=== PATIENT | female | born 1955 | race Caucasian/White ===

== ENCOUNTER → 2016-07-19 | Outpatient (CLI) | payer OTHER | LOC: CCC 08:05 | DX: E11.9 Type 2 diabetes mellitus without complications (principal) | CPT/HCPCS: 36415; 83036 ==

== ENCOUNTER → 2016-10-10 | Outpatient (CLI) | payer OTHER | LOC: CCC 12:45 | DX: E11.9 Type 2 diabetes mellitus without complications (principal) | CPT/HCPCS: 36415; 83036 ==

== ENCOUNTER → 2016-10-18 | Outpatient (CLI) | payer OTHER ==
--- NOTE | 2016-10-18 22:29 | EKG REPORT ---
SEVERITY:- NORMAL ECG - SINUS RHYTHM : Confirmed by: Rhonda Cowart MD 18-Oct-2016 22:28:24
== END ==
LOC: OD 11:56
DX: R07.89 Other chest pain (principal); I10 Essential (primary) hypertension
CPT/HCPCS: 93005; 93010

== ENCOUNTER → 2016-11-28 | Outpatient (CLI) | payer OTHER ==
[2016-11-28 10:34] LABS: ABSOLUTE EOSINOPHILS # (AUTO) 0.1 10^3/uL (0.0-0.6); ABSOLUTE LYMPHOCYTES (AUTO) 1.9 10^3/uL (0.5-4.7); ABSOLUTE MONOCYTES (AUTO) 0.5 10^3/uL (0.1-1.4); ABSOLUTE NEUT (AUTO) 4.9 10^3/uL (1.7-8.2); BASOPHILS % (AUTO) 0.6 % (0-2); EOSINOPHILS % (AUTO) 1.9 % (0-6); HEMATOCRIT 37.3 % (36.0-47.0); HEMOGLOBIN 12.2 g/dL (12.0-15.5); HGB HCT DIFFERENCE -0.7; LYMPHOCYTES % (AUTO) 25.7 % (13-45); MEAN CORPUSCULAR HEMOGLOBIN 27.5 pg (27.0-33.4); MEAN CORPUSCULAR HGB CONC 32.6 g/dL (32.0-36.0); MEAN CORPUSCULAR VOLUME 84 fl (80-97); MONOCYTES % (AUTO) 6.8 % (3-13); RED BLOOD COUNT 4.42 10^6/uL (3.72-5.28); RED CELL DISTRIBUTION WIDTH 14.6 % (11.5-14.0); WHITE BLOOD COUNT 7.5 10^3/uL (4.0-10.5)
[2016-11-28 11:02] LABS: ALANINE AMINOTRANSFERASE 34 U/L (9-52); ALBUMIN 4.3 g/dL (3.5-5.0); ALKALINE PHOSPHATASE 129 U/L (38-126); ANION GAP 13 (5-19); ASPARTATE AMINO TRANSFERASE 23 U/L (14-36); BILIRUBIN,DIRECT 0.4 mg/dL (0.0-0.4); BILIRUBIN,TOTAL 0.6 mg/dL (0.2-1.3); BLOOD UREA NITROGEN 26 mg/dL (7-20); CALCIUM 10.4 mg/dL (8.4-10.2); CARBON DIOXIDE 30 mmol/L (22-30); CHLORIDE 100 mmol/L (98-107); CHOLESTEROL 188.47 mg/dL (0-200); Direct HDL 45 mg/dL (>40); GLUCOSE 86 mg/dL (75-110); SODIUM 143.4 mmol/L (137-145); TOTAL PROTEIN 7.6 g/dL (6.3-8.2); TRIGLYCERIDES 188 mg/dL (<150)
[2016-11-28 11:13] LABS: DIRECT LDL 93 mg/dL (<100)
[2016-11-28 11:19] LABS: VLDL CHOLESTEROL 37.6 mg/dL (10-31)
== END ==
LOC: CCC 09:49
DX: E11.9 Type 2 diabetes mellitus without complications (principal); I10 Essential (primary) hypertension
CPT/HCPCS: 36415; 80053; 80061; 83036; 84443; 85025

== ENCOUNTER → 2017-02-18 | Outpatient (CLI) | payer OTHER ==
--- NOTE | 2017-02-18 17:45 | WOMENS IMAGING REPORT ---
EXAM DESCRIPTION: BILAT SCREENING MAMMO W/CAD COMPLETED DATE/TIME: 02/18/2017 8:51 am REASON FOR STUDY: ROUTINE SCREENING; Z12.31 Z12.31 ENCNTR SCREEN MAMMOGRAM FOR MALIGNANT NEOPLASM O F PETE COMPARISON: 06/27/2015 TECHNIQUE: Standard craniocaudal and mediolateral oblique views of each breast recorded using Yotomoa l acquisition. LIMITATIONS: None. FINDINGS: Findings present which are benign by mammographic criteria. No suspicious masses, calcifi cations or architectural distortion. Pertinent benign findings: Stable benign bilateral breast parenchymal calcifications. Stable benign mammographic nodules in the left upper outer quadrant. Read with the assistance of CAD. .[facility] - R2 Cenova Version 1.3 .[facility] - R2 Cenova Version 1.3 .[facility] - R2 Cenova Version 2.4 .[facility] [place] - R2 Cenova Version 2.4 .[facility] - R2 Tape Stringer Version 9.2 Benign mammographic findings may include one or more of the following: Smooth masses, popcorn/rim/co arse calcifications, asymmetries, post-procedure changes, and lesions with long-standing stability. IMPRESSION: BENIGN MAMMOGRAPHIC FINDINGS. BIRADS 2 BREAST DENSITY: c. The breasts are heterogeneously dense, which may obscure small masses. BIRAD: 2 BENIGN FINDING(S) RECOMMENDATION: ROUTINE SCREENING Please consider bilateral screening tomosynthesis in February 2018 COMMENT: The patient has been notified of the results by letter per SA requirements. Additional no tification policies are in place for contacting patient with suspicious or incomplete findings. Quality ID #[id number]: The [employer] recommends an annual screening mammogram for women aged 40 years or over. This facility utilizes a reminder system to ensure that all patients receive reminder letters, and/or direct phone calls for appointments. This includes reminders for routine scr eening mammograms, diagnostic mammograms, or other Breast Imaging Interventions when appropriate. Th is patient will be placed in the appropriate reminder system. The [employer] (ACR) has developed recommendations for screening MRI of the breast s in certain patient populations, to be used in conjunction with mammography. Breast MRI surveillanc e may be appropriate for women with more than 20% lifetime risk of developing breast cancer as deter mined by genetic testing, significant family history of the disease, or history of mantle radiation f or Hodgkins Disease. ACR Practice Guidelines 2008. TECHNICAL DOCUMENTATION: FINDING NUMBER: (1) ASSESSMENT: (1) JOB ID: [id number] [employer] [facility] [employer]- All Rights Reserved
== END ==
LOC: WI 08:28
DX: Z12.31 Encounter for screening mammogram for malignant neoplasm of breast (principal)
CPT/HCPCS: 77067; G0202

== ENCOUNTER → 2017-04-25 | Outpatient (CLI) | payer OTHER ==
[2017-04-27 11:41] LABS: VITAMIN D 25-HYDROXY 16.2 ng/mL (30.0-100.0)
== END ==
LOC: CCC 08:42
DX: E11.40 Type 2 diabetes mellitus with diabetic neuropathy, unspecified (principal); I10 Essential (primary) hypertension
CPT/HCPCS: 36415; 82306; 83036; 83970

== ENCOUNTER → 2017-06-09 | Outpatient (CLI) | payer OTHER ==
--- NOTE | 2017-06-09 11:31 | WOMENS IMAGING REPORT ---
EXAM DESCRIPTION: RETROPERITONEAL U/S COMPLETED DATE/TIME: 06/09/2017 11:13 am REASON FOR STUDY: STAGE 3 BCKD; N18.3 N18.3 CHRONIC KIDNEY DISEASE, STAGE 3 (MODERATE) COMPARISON: None. TECHNIQUE: Dynamic and static grayscale images acquired of the kidneys and bladder and recorded on P ACS. Additional selected color Doppler and spectral images recorded. LIMITATIONS: None. FINDINGS: RIGHT KIDNEY: Normal size, 11.1 cm. There is cortical thinning. Normal echogenicity. No solid or suspicious masses. No hydronephrosis. No calcifications. LEFT KIDNEY: Normal size, 11.5 cm. There is cortical thinning. Normal echogenicity. No solid or suspicious masses. No hydronephrosis. No calcifications. BLADDER: Ureteral jets are seen bilaterally. No mass is present. OTHER FINDINGS: No other significant finding. IMPRESSION: There is mild cortical thinning each kidney. No other abnormality is appreciated. TECHNICAL DOCUMENTATION: JOB ID: [id number] [employer]- All Rights Reserved
== END ==
LOC: WI 10:38
DX: E11.22 Type 2 diabetes mellitus with diabetic chronic kidney disease (principal); N18.3 Chronic kidney disease, stage 3 (moderate)
CPT/HCPCS: 76770

== ENCOUNTER → 2017-07-11 | Outpatient (CLI) | payer OTHER ==
--- NOTE | 2017-07-11 09:11 | RADIOLOGY REPORT (SQ) ---
EXAM DESCRIPTION: MRI LT LOWER JOINT WITHOUT COMPLETED DATE/TIME: 07/11/2017 7:46 am REASON FOR STUDY: PAIN IN LEFT ANKLE AND JOINTS OF LEFT FOOT (M25.572) M25.572 PAIN IN LEFT ANKLE A ND JOINTS OF LEFT FOOT COMPARISON: 05/15/2017 TECHNIQUE: Left ankle images acquired and stored on PACS. Multiplanar images include fat sensitive s equences as T1, fluid sensitive sequences as FST2/STIR, cartilage sensitive sequences as FSPD, and gr adient echo sequences. LIMITATIONS: None. FINDINGS: BONE MARROW: Bone bruising of the medial malleolus along the articulation with the medial talus. EFFUSIONS: No subtalar or tibiotalar effusions. No loose bodies. OSSEOUS ARTICULATIONS: Normal tibiotalar, subtalar, talonavicular and calcaneocuboid joints. TALAR DOME AND TIBIAL PLAFOND: Normal cartilage. No osteochondral defect. ACHILLES TENDON: Marked thickening of the distal Achilles and at its insertion on the calcaneus. Lar ge Achilles spur. No discrete tear. TIBIALIS ANTERIOR TENDON: Intact without edema at the 1st MT attachment. TIBIALIS POSTERIOR TENDON: Normal morphology and no edema at the navicular attachment. No tendon hammer th fluid. FLEXOR HALLUCIS LONGUS AND FLEXOR DIGITORUM TENDONS: Normal morphology and no tendon sheath fluid. No edema of the os trigonum. PERONEUS LONGUS AND BREVIS TENDON: Normal morphology and no tendon sheath fluid. No subluxation. ATFL, CFL, PTFL: Intact. No thickening or signal alteration. No kashif-ligamentous fluid. DELTOID LIGAMENT: Visualized components intact. TARSAL TUNNEL: No masses. No muscle atrophy. SINUS TARSI: No fluid. No reactive marrow edema or erosions. PLANTAR FASCIA: Mild signal alteration at the calcaneal insertion. There is a plantar spur. No disc rete tear. ADJACENT SOFT TISSUES: No masses. OTHER: No other significant finding. IMPRESSION: Distal Achilles tendinopathy with large Achilles spur. No jose f tear. Marrow edema/ bone bruising of the medial malleolus along the articulation with the medial talus. Mild signal alteration at the calcaneal insertion of the plantar fascia. TECHNICAL DOCUMENTATION: JOB ID: [id number] [employer]- All Rights Reserved
== END ==
LOC: RAD 06:56
PROVIDERS: ATTEND Podiatrist Foot & Ankle Surgery
DX: M25.572 Pain in left ankle and joints of left foot (principal); M77.32 Calcaneal spur, left foot

== ENCOUNTER → 2017-09-04 | Outpatient (CLI) | payer OTHER ==
[2017-09-04 12:05] LABS: ABSOLUTE BASOPHILS # (AUTO) 0.1 10^3/uL (0.0-0.2); ABSOLUTE EOSINOPHILS # (AUTO) 0.2 10^3/uL (0.0-0.6); ABSOLUTE LYMPHOCYTES (AUTO) 2.2 10^3/uL (0.5-4.7); ABSOLUTE MONOCYTES (AUTO) 0.4 10^3/uL (0.1-1.4); BASOPHILS % (AUTO) 0.8 % (0-2); HEMATOCRIT 39.7 % (36.0-47.0); HEMOGLOBIN 13.3 g/dL (12.0-15.5); LYMPHOCYTES % (AUTO) 27.9 % (13-45); MEAN CORPUSCULAR HEMOGLOBIN 28.1 pg (27.0-33.4); MEAN CORPUSCULAR HGB CONC 33.4 g/dL (32.0-36.0); MEAN CORPUSCULAR VOLUME 84 fl (80-97); MONOCYTES % (AUTO) 5.5 % (3-13); PLATELET COUNT 303 10^3/uL (150-450); RED BLOOD COUNT 4.72 10^6/uL (3.72-5.28); RED CELL DISTRIBUTION WIDTH 14.3 % (11.5-14.0); SEGMENTED NEUTROPHILS % (AUTO) 63.8 % (42-78); TOTAL CELLS COUNTED % (AUTO) 100 %; WHITE BLOOD COUNT 7.8 10^3/uL (4.0-10.5)
[2017-09-04 12:31] LABS: ALANINE AMINOTRANSFERASE 23 U/L (9-52); ALBUMIN 4.2 g/dL (3.5-5.0); ALKALINE PHOSPHATASE 156 U/L (38-126); ANION GAP 10 (5-19); ASPARTATE AMINO TRANSFERASE 16 U/L (14-36); BILIRUBIN,DIRECT 0.1 mg/dL (0.0-0.4); BILIRUBIN,TOTAL 0.3 mg/dL (0.2-1.3); BLOOD UREA NITROGEN 28 mg/dL (7-20); CALCIUM 10.1 mg/dL (8.4-10.2); CARBON DIOXIDE 28 mmol/L (22-30); CHLORIDE 102 mmol/L (98-107); CHOLESTEROL 200.05 mg/dL (0-200); GLUCOSE 147 mg/dL (75-110); POTASSIUM 4.2 mmol/L (3.6-5.0); SODIUM 140.4 mmol/L (137-145); TOTAL PROTEIN 6.8 g/dL (6.3-8.2); TRIGLYCERIDES 169 mg/dL (<150)
[2017-09-04 12:42] LABS: DIRECT LDL 114 mg/dL (<100)
[2017-09-04 13:40] LABS: VLDL CHOLESTEROL 33.8 mg/dL (10-31)
== END ==
LOC: CCC 11:22
DX: I10 Essential (primary) hypertension (principal)
CPT/HCPCS: 36415; 80053; 80061; 82306; 82607; 82746; 83036; 84443; 85025

== ENCOUNTER 2017-11-21 21:59 | Emergency (ER) | payer OTHER ==
[2017-11-21 23:10] LABS: ABSOLUTE BASOPHILS # (AUTO) 0.1 10^3/uL (0.0-0.2); ABSOLUTE EOSINOPHILS # (AUTO) 0.1 10^3/uL (0.0-0.6); ABSOLUTE LYMPHOCYTES (AUTO) 2.5 10^3/uL (0.5-4.7); ABSOLUTE MONOCYTES (AUTO) 0.6 10^3/uL (0.1-1.4); ABSOLUTE NEUT (AUTO) 5.9 10^3/uL (1.7-8.2); BASOPHILS % (AUTO) 0.9 % (0-2); EOSINOPHILS % (AUTO) 1.2 % (0-6); HEMATOCRIT 38.7 % (36.0-47.0); HEMOGLOBIN 13.4 g/dL (12.0-15.5); LYMPHOCYTES % (AUTO) 27.2 % (13-45); MEAN CORPUSCULAR HEMOGLOBIN 29.1 pg (27.0-33.4); MEAN CORPUSCULAR HGB CONC 34.6 g/dL (32.0-36.0); MEAN CORPUSCULAR VOLUME 84 fl (80-97); MONOCYTES % (AUTO) 6.2 % (3-13); PLATELET COUNT 299 10^3/uL (150-450); RED CELL DISTRIBUTION WIDTH 13.9 % (11.5-14.0); SEGMENTED NEUTROPHILS % (AUTO) 64.5 % (42-78); TOTAL CELLS COUNTED % (AUTO) 100 %; WHITE BLOOD COUNT 9.2 10^3/uL (4.0-10.5)
[2017-11-21 23:24] LABS: ANION GAP 12 (5-19); BLOOD UREA NITROGEN 32 mg/dL (7-20); CALCIUM 9.8 mg/dL (8.4-10.2); CARBON DIOXIDE 28 mmol/L (22-30); CHLORIDE 98 mmol/L (98-107); GLUCOSE 248 mg/dL (75-110); SODIUM 138.4 mmol/L (137-145)
[2017-11-21] MEDS ORDERED: LIDOCAINE 5% (700 MG) TRANSDERMAL ADH..PATCH TP ONE (23:54)
[2017-11-21] MEDS ORDERED: IBUPROFEN 600 MG TABLET PO ONE (23:54)
--- NOTE | 2017-11-22 00:07 | RADIOLOGY REPORT (SQ) ---
EXAM DESCRIPTION: XR CHEST 1 VIEW CLINICAL HISTORY: 62 years Female, chest pain COMPARISON: None. NUMBER OF VIEWS/TECHNIQUE: 1/AP FINDINGS: Adequate lung volume, clear parenchyma, normal cardiac silhouette, and intact bony thorax. IMPRESSION: No acute cardiopulmonary findings.
--- NOTE | 2017-11-22 00:29 | ER Document Report ---
ED General - General Chief Complaint: Chest Pain Stated Complaint: CHEST PAIN Time Seen by Provider: 11/21/17 23:00 Notes: Patient is a 62-year-old female with a past medical history of hypertension, hyperlipidemia, no prior cardiac history who presents with intermittent chest pain for the past 1 week. Patient reports that she has several episodes daily of a sharp, catching pain to the left central area of her chest. She states that it is sometimes induced by moving her arm but notes that it can otherwise occur sometimes when she is just moving around. The symptoms do start spontaneously and resolve spontaneously. She states that she has a history of the same in the past but they have never identified an etiology of where the pain has come from. She denies any associated nausea, vomiting, diaphoresis or shortness of breath. She denies any history of DVT or pulmonary embolus. She has not seen her primary doctor regarding today's concerns. TRAVEL OUTSIDE OF THE [place] IN LAST 30 DAYS: No Past Medical History - General Information source: Patient - Social History Smoking Status: Former Smoker Chew tobacco use (# tins/day): No Frequency of alcohol use: None Drug Abuse: None Lives with: Family Family History: Reviewed & Not Pertinent Patient has suicidal ideation: No Patient has homicidal ideation: No Renal/ Medical History: Denies: Hx Peritoneal Dialysis Review of Systems - Review of Systems Notes: Constitutional: Negative for fever. HENT: Negative for sore throat. Eyes: Negative for visual changes. Cardiovascular: Positive for chest pain. Respiratory: Negative for shortness of breath. Gastrointestinal: Negative for abdominal pain, vomiting or diarrhea. Genitourinary: Negative for dysuria. Musculoskeletal: Negative for back pain. Skin: Negative for rash. Neurological: Negative for headaches, weakness or numbness. 10 point ROS negative except as marked above and in HPI. Physical Exam - Vital signs Vitals: Temp Pulse Resp BP Pulse Ox 97.6 F 79 18 186/79 H 97 11/21/17 22:23 11/21/17 22:23 11/21/17 22:23 11/21/17 22:23 11/21/17 22:23 Interpretation: Hypertensive Notes: PHYSICAL EXAMINATION: GENERAL: Well-appearing, well-nourished and in no acute distress. HEAD: Atraumatic, normocephalic. EYES: Pupils equal round and reactive to light, extraocular movements intact, sclera anicteric, conjunctiva are normal. ENT: nares patent, oropharynx clear without exudates. Moist mucous membranes. NECK: Normal range of motion, supple without lymphadenopathy LUNGS: Breath sounds clear to auscultation bilaterally and equal. No wheezes rales or rhonchi. HEART: Regular rate and rhythm without murmurs ABDOMEN: Soft, nontender, normoactive bowel sounds. No guarding, no rebound. No masses appreciated. EXTREMITIES: Normal range of motion, no pitting or edema. No cyanosis. NEUROLOGICAL: No focal neurological deficits. Moves all extremities spontaneously and on command. PSYCH: Normal mood, normal affect. SKIN: Warm, Dry, normal turgor, no rashes or lesions noted. Course - Re-evaluation Re-evalutation: 11/22/17 00:27 Presentation of chest pain in an otherwise well appearing patient. Low clinical suspicion for ACS given clinical history, exam, EKG without ST elevations or depressions, and negative initial troponin. HEART score less than or equal to 3. PE also seems unlikely given clinical history, absence of tachycardia or dyspnea. Patient is PERC criteria negative. CXR without evidence of pneumothorax or pneumonia. No widened mediastinum. Aortic dissection also seems unlikely given history, symmetric pulses, CXR, and vitals. Will repeat a delta troponin if this remains normal plan for discharge home 11/22/17 02:45 Delta troponin remains normal. Final assessment: Chest pain in a patient without evidence of cardiac or other serious etiology on workup today. I discussed with patient that, based on their age, risk factors and emergency department testing today, the likelihood that their symptoms are related to a heart attack is very low (estimated risk of heart attack or over the next 30 days of less than 1%). The patient demonstrates decision making capacity and has verbalized an understanding of these risks to me. Based on this, the patient has chosen to follow-up as an outpatient. Usual chest pain return precautions reviewed. The patient states understanding and agreement with this plan. - Vital Signs Vital signs: Temp Pulse Resp BP Pulse Ox 97.6 F 79 19 137/69 H 95 11/21/17 22:23 11/21/17 22:23 11/22/17 02:31 11/22/17 02:31 11/22/17 02:31 - Laboratory Result Diagrams: 11/21/17 23:00 11/21/17 23:00 Laboratory results interpreted by me: 11/21/17 23:00 BUN 32 H Creatinine 1.57 H Est GFR ( Amer) 41 L Est GFR (Non-Af Amer) 34 L Glucose 248 H - Diagnostic Test Radiology reviewed: Image reviewed, Reports reviewed Radiology results interpreted by me: 11/22/17 00:28 Chest x-ray: No acute infiltrate or pneumothorax - EKG Interpretation by Me Additional EKG results interpreted by me: 11/22/17 00:29 Sinus rhythm. Rate 75. No ST elevations or depressions. QTC is 407. Discharge - Discharge Clinical Impression: Essential hypertension Chest pain Qualifiers: Chest pain type: unspecified Qualified Code(s): R07.9 - Chest pain, unspecified Condition: Good Disposition: HOME, SELF-CARE Additional Instructions: You were seen today for chest pain. The exact cause of your pain is unclear. However, based on your cardiac enzyme testing, chest x-ray, and EKG it does not appear that it is from an immediately life-threatening cause at this time. Although your testing here is normal is critical that you follow-up with your primary care physician for continued evaluation of this chest pain and possible stress testing. I recommended you see your physician within the next 24-48 hours to be evaluated for consideration of a stress test. Please return to emergency department immediately if you have worsening of your chest pain, shortness of breath, vomiting, become unable to exert yourself due to pain or difficulty breathing, you pass out, or have any pain that radiates into your arms, jaw, or back. Please also return if you have any additional symptoms that are concerning to you. Referrals: [facility] [Primary Care Provider] - Follow up as needed
[2017-11-22 03:03] VITALS: BP 137/69
--- NOTE | 2017-11-22 08:51 | EKG REPORT ---
SEVERITY:- NORMAL ECG - SINUS RHYTHM : Confirmed by: Min Lin MD 22-Nov-2017 08:51:01
== END 2017-11-22 03:04 | disposition home or self-care (01) ==
LOC: ER 21:59
DX: R07.9 Chest pain, unspecified (principal); I10 Essential (primary) hypertension; Z87.891 Personal history of nicotine dependence
CPT/HCPCS: 36415; 71045; 80048; 84484; 85025; 93005; 93010; 99285

== ENCOUNTER → 2017-12-29 | Outpatient (CLI) | payer OTHER ==
--- NOTE | 2017-12-29 18:34 | XCELERA REPORT ---
[address] [address] Transthoracic Echocardiogram Report Name: SOPHIE PATEL Age: 62 yrs Gender: Female : 1955 Patient Status: Outpatient Patient Location: Study Date: 12/29/2017 03:06 PM Height: 62 in Weight: 195 lb BSA: 1.9 m2 Procedure: A complete two-dimensional transthoracic echocardiogram was performed (2D, M-mode, spectral and color flow Doppler). The study was technically adequate with some images being suboptimal in quality. Reason For Study: CP Ordering Physician: RADHA HOLMAN Performed By: Pilar Hendricks Interpretation Summary The left ventricular ejection fraction is normal. There is borderline concentric left ventricular hypertrophy. The left ventricle is grossly normal size. Doppler measurements suggest pseudonormalized left ventricular relaxation, which is associated with grade II/IV or mild to moderate diastolic dysfunction Wall motion cannot be accurately commented on, but no definite regional wall motion abnormalities noted. The right ventricular systolic function is normal. The right ventricle is grossly normal size. The left atrial size is normal. The right atrium is normal in size There is a trace amount of mitral regurgitation There is no mitral valve stenosis. No aortic regurgitation is present. There is no aortic valve stenosis There is a trace or physiologic amount of tricuspid regurgitation Tricuspid regurgitation jet envelope not well defined to measure RV systolic pressure accurately. The aortic root is not well visualized but is probably normal size. The inferior vena cava was not visualized There is no pericardial effusion. MMode/2D Measurements & Calculations RVDd: 3.4 cm LVIDd: 3.7 cm FS: 33.4 % Ao root diam: 2.5 cm IVSd: 1.1 cm LVIDs: 2.5 cm EDV(Teich): 58.7 ml LVPWd: 0.96 cm ESV(Teich): 21.8 ml Ao root area: 5.1 cm2 EF(Teich): 62.9 % LA dimension: 3.2 cm Doppler Measurements & Calculations MV E max waleska: MV P1/2t max waleska: Ao V2 max: LV V1 max P.1 cm/sec 67.1 cm/sec 116.4 cm/sec 3.3 mmHg MV A max waleska: MV P1/2t: 99.0 msec Ao max PG: LV V1 max: 101.7 cm/sec 5.4 mmHg 90.8 cm/sec MV E/A: 0.65 MVA(P1/2t): 2.2 cm2 MV dec slope: 198.6 cm/sec2 MV dec time: 0.36 sec PA V2 max: PI end-d waleska: 86.4 cm/sec 96.4 cm/sec PA max P.0 mmHg Left Ventricle The left ventricle is grossly normal size. There is borderline concentric left ventricular hypertrophy. The left ventricular ejection fraction is normal. Doppler measurements suggest pseudonormalized left ventricular relaxation, which is associated with grade II/IV or mild to moderate diastolic dysfunction. Wall motion cannot be accurately commented on, but no definite regional wall motion abnormalities noted. Right Ventricle The right ventricle is grossly normal size. There is normal right ventricular wall thickness. The right ventricular systolic function is normal. Atria The right atrium is normal in size. The left atrial size is normal. Interarterial septum not well visualized and not well dopplered. Cannot comment on ASD/PFO presence. Mitral Valve The mitral valve is grossly normal. There is no mitral valve stenosis. There is a trace amount of mitral regurgitation. Aortic Valve The aortic valve is grossly normal. There is no aortic valve stenosis. No aortic regurgitation is present. Tricuspid Valve The tricuspid valve is not well visualized secondary to technical limitations. There is no tricuspid stenosis. There is a trace or physiologic amount of tricuspid regurgitation. Tricuspid regurgitation jet envelope not well defined to measure RV systolic pressure accurately. Pulmonic Valve The pulmonic valve is not well visualized. Great Vessels The aortic root is not well visualized but is probably normal size. The inferior vena cava was not visualized. Effusions There is no pericardial effusion. : RADHA HOLMAN > Benedict Houston
== END ==
LOC: SP 14:24
PROVIDERS: ATTEND Internal Medicine
DX: E11.22 Type 2 diabetes mellitus with diabetic chronic kidney disease (principal); N18.9 Chronic kidney disease, unspecified; R07.9 Chest pain, unspecified; E11.40 Type 2 diabetes mellitus with diabetic neuropathy, unspecified; E78.5 Hyperlipidemia, unspecified
CPT/HCPCS: 93306

== ENCOUNTER → 2018-01-01 | Outpatient (CLI) | payer OTHER ==
[2018-01-01 15:50] LABS: APPEARANCE,URINE CLEAR; BILIRUBIN,URINE NEGATIVE (NEGATIVE); COLOR,URINE YELLOW; GLUCOSE, URINE 150 mg/dL (NEGATIVE); KETONES,URINE NEGATIVE (NEGATIVE); LEUKOCYTE ESTERASE,URINE TRACE (NEGATIVE); NITRITE,URINE NEGATIVE (NEGATIVE); PROTEIN,URINE NEGATIVE (NEGATIVE); URINE SPECIFIC GRAVITY 1.019; UROBILINOGEN,URINE NEGATIVE mg/dL (<2.0)
[2018-01-01 16:13] LABS: ALANINE AMINOTRANSFERASE 24 U/L (9-52); ALBUMIN 4.3 g/dL (3.5-5.0); ALKALINE PHOSPHATASE 161 U/L (38-126); ANION GAP 13 (5-19); ASPARTATE AMINO TRANSFERASE 14 U/L (14-36); BILIRUBIN,DIRECT 0.3 mg/dL (0.0-0.4); BILIRUBIN,TOTAL 0.4 mg/dL (0.2-1.3); BLOOD UREA NITROGEN 23 mg/dL (7-20); CALCIUM 9.2 mg/dL (8.4-10.2); CARBON DIOXIDE 28 mmol/L (22-30); CHLORIDE 100 mmol/L (98-107); GLUCOSE 177 mg/dL (75-110); POTASSIUM 4.1 mmol/L (3.6-5.0); SODIUM 141.1 mmol/L (137-145); TOTAL PROTEIN 7.2 g/dL (6.3-8.2)
[2018-01-01 16:26] LABS: UR PRO/CREAT RATIO RESULT 0.1 mg/mg (0.0-0.2); URINE CREATININE 108.3 mg/dL (15-278); URINE PROTEIN 9.6 mg/dL (<12)
== END ==
LOC: CCC 15:07
DX: E11.22 Type 2 diabetes mellitus with diabetic chronic kidney disease (principal); N18.3 Chronic kidney disease, stage 3 (moderate); E11.40 Type 2 diabetes mellitus with diabetic neuropathy, unspecified
CPT/HCPCS: 36415; 80053; 81001; 82570; 83036; 84156

== ENCOUNTER → 2018-01-02 | Outpatient (CLI) | payer OTHER ==
--- NOTE | 2018-01-02 14:31 | WOMENS IMAGING REPORT ---
EXAM DESCRIPTION: TRANSVAGINAL ULTRASOUND COMPLETED DATE/TIME: 01/02/2018 1:31 pm REASON FOR STUDY: RIGHT LOWER QUADRANT PAIN R10.31 RIGHT LOWER QUADRANT PAIN postmenopausal COMPARISON: None. TECHNIQUE: Dynamic and static grayscale images acquired of the pelvis via transvaginal approach and recorded on PACS. Additional selected color Doppler and spectral images recorded. LIMITATIONS: None. FINDINGS: UTERUS: Contour normal. No mass. ENDOMETRIAL STRIPE: No masses or fluid collections. CERVIX: Not well seen. No obvious nabothian cyst. RIGHT OVARY AND DOPPLER: Ovary not seen. LEFT OVARY AND DOPPLER: Normal size. No worrisome masses. FREE FLUID: None noted. OTHER: No other significant finding. MEASUREMENTS: UTERUS: 7.7 x 2.9 x 3.9 cm ENDOMETRIAL STRIPE: 4 mm RIGHT OVARY: Ovary not seen LEFT OVARY: 2.1 x 1.8 x 2.1 cm IMPRESSION: NORMAL TRANSVAGINAL PELVIC ULTRASOUND. TECHNICAL DOCUMENTATION: JOB ID: [id number] [employer]- All Rights Reserved Rev-11/28 Reading location - IP/workstation name: [email or web address]
== END ==
LOC: WI 12:44
DX: R10.31 Right lower quadrant pain (principal)
CPT/HCPCS: 76830

== ENCOUNTER → 2019-12-31 | Outpatient (CLI) | payer OTHER ==
--- NOTE | 2019-12-31 12:51 | RADIOLOGY REPORT (SQ) ---
EXAM DESCRIPTION: MRI CERVICAL SPINE WITHOUT IMAGES COMPLETED DATE/TIME: 12/31/2019 11:04 am REASON FOR STUDY: CERVICAL RADICULOPATHY (M54.12) M54.12 RADICULOPATHY, CERVICAL REGION COMPARISON: None. TECHNIQUE: Sagittal and Axial imaging includes T1, T2, STIR and gradient echo sequences. LIMITATIONS: None. FINDINGS: ALIGNMENT: Normal. VERTEBRAE: Intact. BONE MARROW: Normal. No marrow replacement or reactive changes. HARDWARE: None in the spine. CORD AND BASE OF BRAIN: Normal in size and signal intensity. SOFT TISSUES: No soft tissue masses. C1-C2: No significant spinal stenosis. C2-C3: No significant spinal stenosis or exit foraminal stenosis. C3-C4: Minimal disc osteophyte complex without impingement or stenosis. C4-C5: Mild central -right paracentral protrusion contacts the ventral aspect of the cord. No jose f cord compression. C5-C6: Central disc protrusion contacts the ventral aspect of the cord. Very slight flattening may b e present. There is also posterior ligament thickening effacing the posterior CSF space. Bilateral foraminal encroachment is noncritical, likely moderate. C6-C7: Disc osteophyte complex contacts the left ventral aspect of the cord. Minimal flattening with out abnormal signal. No high-grade foraminal stenosis. C7-T1: No significant spinal stenosis or exit foraminal stenosis. UPPER THORACIC: Incompletely imaged. No significant spinal stenosis or exit foraminal stenosis. OTHER: No other significant finding. IMPRESSION: 1. Multilevel spondylosis. Minimal levels of cord impingement as described above but no myelopathic signal in the cord. No high-grade central stenosis. Variable foraminal narrowing. 2. No fracture or worrisome bone lesion or spinal malalignment. TECHNICAL DOCUMENTATION: JOB ID: [id number] 2010 [employer]- All Rights Reserved Reading location - IP/workstation name: [email or web address] MACHINE [email or web address]
== END ==
LOC: RAD 09:50
PROVIDERS: ATTEND Psychiatry & Neurology Neurology
DX: M50.122 Cervical disc disorder at C5-C6 level with radiculopathy (principal); M47.22 Other spondylosis with radiculopathy, cervical region
CPT/HCPCS: 72141